=== PATIENT | female | born 1945 | race Caucasian/White ===

== ENCOUNTER 2017-01-19 13:09 | Emergency (ER) | payer SELFPAY ==
[~2017-01-19] VITALS: Ht 165.1 cm; Wt 116.0 kg
[~2017-01-19 13:09] MED LIST: ADVAIR HFA120 INHALA IH; AZITHROMYCIN250 MG PO; BENZONATATE100 MG PO; CEFTIN500 MG PO; CLARITIN,ALAVAR10 MG PO; MOTRIN800 MG PO; NAPROXEN500 MG PO; NEURONTIN300 MG PO; PREDNISONE5 MG PO; PREDNISONE50 MG PO; ROBITUSSIN AC,T10 ML PO; SPIRIVA RESPIMAT4 GM IH; VENTOLIN HFA18 GM IH; ZESTRIL20 MG PO; ZOLOFT100 MG PO
[2017-01-19] MEDS ORDERED: PERCOCET 5/31 TABLET PO (14:30)
[2017-01-19 15:09] VITALS: BP 154/72
== END 2017-01-19 15:16 | disposition home or self-care (01) ==
LOC: EME 13:09
DX: S22.41XA Multiple fractures of ribs, right side, initial encounter for closed fracture (principal); S82.142A Displaced bicondylar fracture of left tibia, initial encounter for closed fracture; W01.198A Fall on same level from slipping, tripping and stumbling with subsequent striking against other object, initial encounter; Y93.01 Activity, walking, marching and hiking; I10 Essential (primary) hypertension; J44.9 Chronic obstructive pulmonary disease, unspecified; J45.909 Unspecified asthma, uncomplicated
CPT/HCPCS: 71101; 73564; 99281; 99284

== ENCOUNTER 2017-11-03 13:24 | Emergency (ER) | payer OTHER ==
[~2017-11-03] VITALS: Ht 165.1 cm; Wt 116.8 kg
[~2017-11-03 13:24] MED LIST changes: +PERCOCET 5/31 TABLET PO
[2017-11-03 15:27] VITALS: BP 153/68
== END 2017-11-03 15:51 | disposition home or self-care (01) ==
LOC: EME 13:24
DX: S92.344A Nondisplaced fracture of fourth metatarsal bone, right foot, initial encounter for closed fracture (principal); S92.354A Nondisplaced fracture of fifth metatarsal bone, right foot, initial encounter for closed fracture; S92.514A Nondisplaced fracture of proximal phalanx of right lesser toe(s), initial encounter for closed fracture; V89.0XXA Person injured in unspecified motor-vehicle accident, nontraffic, initial encounter; Y92.415 Exit ramp or entrance ramp of street or highway as the place of occurrence of the external cause; Z91.041 Radiographic dye allergy status
CPT/HCPCS: 71020; 73630; 99281; 99284

== ENCOUNTER 2018-02-05 03:42 | Observation (INO) | payer OTHER ==
[~2018-02-05] VITALS: Ht 165.1 cm; Wt 116.8 kg
[2018-02-05 05:07] LABS: HEMOGLOBIN 12.4 G/DL (11.9-15.5); MCH 29.2 PG (29.0-34.0); MCHC 32.6 G/DL (30.0-36.0); MCV 89.6 FL (83-99); PLATELET COUNT 105 K/uL (156-360); RBC DIS.WIDTH-CV 13.2 % (11.8-14.6); RBC DIS.WIDTH-SD 43.2 % (39-53); RED BLOOD COUNT 4.24 M/uL (3.80-5.20); WHITE BLOOD COUNT 4.2 K/uL (4.1-10.2)
[2018-02-05 05:33] LABS: TROP-I INTERPRETATION NEGATIVE; TROPONIN-I < 0.01 ng/mL (0.0-0.30)
[2018-02-05 05:55] LABS: CHLORIDE 107 mEq/L (99-109); POTASSIUM 4.4 mEq/L (3.7-5.4); SODIUM 143 mEq/L (136-147)
[2018-02-05 05:56] LABS: GLUCOSE 102 mg/dL (70-99)
[2018-02-05 06:00] LABS: CREATININE 0.8 mg/dL (0.6-1.3); GFR ESTIMATE (CALCULATED) > 59 mL/min/
[2018-02-05 06:01] LABS: UREA NITROGEN (BUN) 14 mg/dL (9-23)
[2018-02-05 08:25] VITALS: BP 143/95
[2018-02-05 11:11] VITALS: BP 134/62
[2018-02-05 11:16] LABS: TROP-I INTERPRETATION NEGATIVE; TROPONIN-I < 0.01 ng/mL (0.0-0.30)
[2018-02-05] MEDS ORDERED: SPIRIVA RESPIMAT4 GM IH ×2 (12:09→12:10)
[2018-02-05] MEDS ORDERED: MOBIC7.5 MG PO (12:13)
[2018-02-05] MEDS ORDERED: OMEPRAZOLE20 M2 PO (12:14)
[2018-02-05] MEDS ORDERED: CLONIDINE HCL0.2 MG PO (12:15)
[2018-02-05] MEDS ORDERED: METOPROLOL SUC200 MG PO (12:15)
[2018-02-05] MEDS ORDERED: CALCIUM 500 +1 EAC2 PO (12:17)
[2018-02-05 15:36] VITALS: BP 126/66
[2018-02-05 17:16] LABS: TROP-I INTERPRETATION NEGATIVE; TROPONIN-I < 0.01 ng/mL (0.0-0.30)
[2018-02-05 19:29] VITALS: BP 167/74
[2018-02-06 00:28] VITALS: BP 182/80
[2018-02-06 03:48] VITALS: BP 146/66
[2018-02-06 05:11] LABS: BASOPHIL (%) 1.1 % (0-1); BASOPHIL COUNT 0.1 K/uL (0-0.1); EOSINOPHIL (%) 2.6 % (0-5); EOSINOPHIL COUNT 0.1 K/uL (0-0.3); HEMATOCRIT 38.6 % (36.0-46.0); HEMOGLOBIN 12.7 G/DL (11.9-15.5); IMMATURE GRANULOCYTE (%) 0.2 % (0.0-0.7); LYMPHOCYTE (%) 23.4 % (15-42); LYMPHOCYTE COUNT 1.1 K/uL (1.0-2.8); MCH 29.5 PG (29.0-34.0); MCHC 32.9 G/DL (30.0-36.0); MCV 89.6 FL (83-99); MONOCYTE (%) 9.4 % (3-12); MONOCYTE COUNT 0.4 K/uL (0-0.8); NEUTROPHIL (%) 63.3 % (45-76); PLATELET COUNT 107 K/uL (156-360); RBC DIS.WIDTH-CV 13.2 % (11.8-14.6); RBC DIS.WIDTH-SD 43.5 % (39-53); RED BLOOD COUNT 4.31 M/uL (3.80-5.20); WHITE BLOOD COUNT 4.7 K/uL (4.1-10.2)
[2018-02-06 06:05] LABS: CHLORIDE 102 MEQ/L (99-109); CREATININE 1.1 MG/DL (0.6-1.3); GFR ESTIMATE (CALCULATED) 52 mL/min/; GLUCOSE 101 mg/dL (70-99); POTASSIUM 3.9 MEQ/L (3.7-5.4); SODIUM 144 MEQ/L (136-147); UREA NITROGEN (BUN) 15 mg/dL (9-23)
[2018-02-06 08:35] VITALS: BP 147/70
[2018-02-06 11:33] VITALS: BP 119/59
[2018-02-06 15:08] VITALS: BP 99/49
[2018-02-06] MEDS ORDERED: ASPIR-LOW81 MG PO (15:45)
[2018-02-06] MEDS ORDERED: AMLODIPINE BESYL5 MG PO (15:45)
[2018-02-06] MEDS ORDERED: HYDROCHLOROTH12.5 M3 PO (15:45)
[2018-02-06] MEDS ORDERED: LISINOPRIL40 MG PO (15:45)
== END 2018-02-06 16:30 | disposition home or self-care (01) ==
LOC: EME 03:42 → EDOF 06:09 → 5WEST 06:09 → EDOF 06:09 → ENRESERV 06:11 → 5WEST 08:08
PROVIDERS: Emergency Medicine; Family Medicine; Internal Medicine
DX: R07.9 Chest pain, unspecified (principal); I16.0 Hypertensive urgency; R00.1 Bradycardia, unspecified; I11.0 Hypertensive heart disease with heart failure; I50.9 Heart failure, unspecified; I25.10 Atherosclerotic heart disease of native coronary artery without angina pectoris; J44.9 Chronic obstructive pulmonary disease, unspecified; D69.6 Thrombocytopenia, unspecified; K29.60 Other gastritis without bleeding; F41.9 Anxiety disorder, unspecified; F32.9 Major depressive disorder, single episode, unspecified; E78.5 Hyperlipidemia, unspecified; E66.01 Morbid (severe) obesity due to excess calories; Z68.41 Body mass index [BMI] 40.0-44.9, adult; Z90.710 Acquired absence of both cervix and uterus; Z87.891 Personal history of nicotine dependence
CPT/HCPCS: 71045; 71046; 80048; 83880; 84484; 85025; 85027; 93005; 93306; 94640; 94640 76; 94799; 99281; 99284; G0378; J1650; J1940

== ENCOUNTER 2018-04-11 13:35 | Inpatient (IN) | payer OTHER ==
[~2018-04-11] VITALS: Ht 165.1 cm; Wt 112.7 kg
[~2018-04-11 13:35] MED LIST changes: +AMLODIPINE BESYL5 MG PO; +ASPIR-LOW81 MG PO; +CALCIUM 500 +1 EAC2 PO; +CLONIDINE HCL0.2 MG PO; +HYDROCHLOROTH12.5 M3 PO; +LISINOPRIL40 MG PO; +METOPROLOL SUC200 MG PO; +MOBIC7.5 MG PO; +OMEPRAZOLE20 M2 PO
[2018-04-11 14:27] LABS: HEMATOCRIT 40.3 % (36.0-46.0); HEMOGLOBIN 13.2 G/DL (11.9-15.5); MCH 30.1 PG (29.0-34.0); MCHC 32.8 G/DL (30.0-36.0); MCV 91.8 FL (83-99); PLATELET COUNT 131 K/uL (156-360); RBC DIS.WIDTH-CV 13.4 % (11.8-14.6); RBC DIS.WIDTH-SD 45.4 % (39-53); RED BLOOD COUNT 4.39 M/uL (3.80-5.20); WHITE BLOOD COUNT 11.5 K/uL (4.1-10.2)
[2018-04-11 14:39] LABS: CHLORIDE 104 mEq/L (99-109); POTASSIUM 3.9 mEq/L (3.7-5.4); SODIUM 144 mEq/L (136-147)
[2018-04-11 14:40] LABS: GLUCOSE 121 mg/dL (70-99)
[2018-04-11 14:43] LABS: INTER. NORMALIZED RATIO 1.4
[2018-04-11 14:44] LABS: CREATININE 1.2 mg/dL (0.6-1.3); GFR ESTIMATE (CALCULATED) 47 mL/min/
[2018-04-11 14:45] LABS: UREA NITROGEN (BUN) 18 mg/dL (9-23)
[2018-04-11 14:46] LABS: PTT 30.9 SEC (25-37)
[2018-04-11] MEDS ORDERED: FUROSEMIDE20 MG PO (17:04)
[2018-04-11] MEDS ORDERED: METOPROLOL SUC200 MG PO (17:05)
[2018-04-11] MEDS ORDERED: NIFEDIPINE ER30 MG PO (17:05)
[2018-04-11] MEDS ORDERED: CYCLOBENZAPRINE5 MG PO (17:05)
[2018-04-11 18:12] VITALS: BP 131/66
[2018-04-11 18:28] LABS: HEMATOCRIT 39.3 % (36.0-46.0); HEMOGLOBIN 12.4 G/DL (11.9-15.5); MCV 91.8 FL (83-99)
[2018-04-11 19:41] VITALS: BP 128/58
[2018-04-11 21:44] LABS: HEMATOCRIT 38.2 % (36.0-46.0); HEMOGLOBIN 12.1 G/DL (11.9-15.5); MCV 92.5 FL (83-99)
[2018-04-12] VITALS: BP 124/60
[2018-04-12 04:00] VITALS: BP 137/61
[2018-04-12 05:52] LABS: HEMATOCRIT 35.5 % (36.0-46.0); HEMOGLOBIN 11.3 G/DL (11.9-15.5); MCH 29.4 PG (29.0-34.0); MCHC 31.8 G/DL (30.0-36.0); MCV 92.2 FL (83-99); PLATELET COUNT 99 K/uL (156-360); RBC DIS.WIDTH-CV 13.7 % (11.8-14.6); RBC DIS.WIDTH-SD 45.9 % (39-53); RED BLOOD COUNT 3.85 M/uL (3.80-5.20); WHITE BLOOD COUNT 6.3 K/uL (4.1-10.2)
[2018-04-12 06:25] LABS: CHLORIDE 109 MEQ/L (99-109); CREATININE 0.9 MG/DL (0.6-1.3); GFR ESTIMATE (CALCULATED) > 59 mL/min/; GLUCOSE 118 mg/dL (70-99); POTASSIUM 3.8 MEQ/L (3.7-5.4); SODIUM 146 MEQ/L (136-147); UREA NITROGEN (BUN) 14 mg/dL (9-23)
[2018-04-12 07:44] VITALS: BP 144/68
[2018-04-12 11:39] VITALS: BP 117/62
[2018-04-12 16:09] VITALS: BP 118/55
[2018-04-12 17:46] LABS: HEMATOCRIT 36.4 % (36.0-46.0); HEMOGLOBIN 11.7 G/DL (11.9-15.5); MCV 91.5 FL (83-99)
[2018-04-12 19:00] VITALS: BP 131/60
[2018-04-13 00:44] VITALS: BP 181/79
[2018-04-13 01:30] VITALS: BP 169/69
[2018-04-13 01:40] LABS: C DIFF TOXIN NEGATIVE (NEGATIVE)
[2018-04-13 04:00] VITALS: BP 140/72
[2018-04-13 06:08] LABS: HEMATOCRIT 35.6 % (36.0-46.0); HEMOGLOBIN 11.4 G/DL (11.9-15.5); MCH 29.1 PG (29.0-34.0); MCV 90.8 FL (83-99); PLATELET COUNT 125 K/uL (156-360); RBC DIS.WIDTH-CV 13.6 % (11.8-14.6); RBC DIS.WIDTH-SD 45.5 % (39-53); RED BLOOD COUNT 3.92 M/uL (3.80-5.20); WHITE BLOOD COUNT 4.3 K/uL (4.1-10.2)
[2018-04-13 06:23] LABS: CHLORIDE 110 MEQ/L (99-109); GFR ESTIMATE (CALCULATED) 58 mL/min/; GLUCOSE 122 mg/dL (70-99); POTASSIUM 3.5 MEQ/L (3.7-5.4); SODIUM 147 MEQ/L (136-147); UREA NITROGEN (BUN) 11 mg/dL (9-23)
[2018-04-13 07:29] VITALS: BP 153/68
[2018-04-13] MEDS ORDERED: FLAGYL500 MG PO (09:19)
[2018-04-13] MEDS ORDERED: CIPRO500 MG PO (09:19)
== END 2018-04-13 11:36 | disposition home or self-care (01) | DRG 392 ==
LOC: EME 13:35 → EDOF 15:51 → ENRESERV 15:52 → 5SOUTH 17:58
PROVIDERS: Emergency Medicine; Family Medicine; Physician Assistant Medical
DX: A09 Infectious gastroenteritis and colitis, unspecified (principal); K92.2 Gastrointestinal hemorrhage, unspecified; I95.9 Hypotension, unspecified; J44.9 Chronic obstructive pulmonary disease, unspecified; I10 Essential (primary) hypertension; F32.9 Major depressive disorder, single episode, unspecified; F41.9 Anxiety disorder, unspecified; K21.9 Gastro-esophageal reflux disease without esophagitis; E66.9 Obesity, unspecified; Z68.41 Body mass index [BMI] 40.0-44.9, adult; Z79.82 Long term (current) use of aspirin; Z87.891 Personal history of nicotine dependence
CPT/HCPCS: 71045; 74176; 80048; 83605; 83630; 85014; 85018; 85027; 85610; 85730; 86850; 86900; 86901; 87040; 87493; 87506; 94640; 94640 76; 94799; 99202; 99281; 99285; C9113; J0744; J3370; J7030; S0030

== ENCOUNTER 2018-06-21 09:06 | Emergency (ER) | payer OTHER ==
[~2018-06-21] VITALS: Ht 165.1 cm; Wt 109.9 kg
[~2018-06-21 09:06] MED LIST changes: +CIPRO500 MG PO; +CYCLOBENZAPRINE5 MG PO; +FLAGYL500 MG PO; +FUROSEMIDE20 MG PO; +NIFEDIPINE ER30 MG PO
[2018-06-21 09:39] LABS: HEMATOCRIT 43.9 % (36.0-46.0); HEMOGLOBIN 14.7 G/DL (11.9-15.5); MCH 30.1 PG (29.0-34.0); MCHC 33.5 G/DL (30.0-36.0); PLATELET COUNT 143 K/uL (156-360); RBC DIS.WIDTH-CV 12.9 % (11.8-14.6); RBC DIS.WIDTH-SD 42.5 % (39-53); RED BLOOD COUNT 4.88 M/uL (3.80-5.20); WHITE BLOOD COUNT 9.6 K/uL (4.1-10.2)
[2018-06-21 09:48] LABS: CHLORIDE 107 mEq/L (99-109); POTASSIUM 3.4 mEq/L (3.7-5.4); SODIUM 144 mEq/L (136-147)
[2018-06-21 09:50] LABS: GLUCOSE 182 mg/dL (70-99)
[2018-06-21 09:53] LABS: GFR ESTIMATE (CALCULATED) 58 mL/min/
[2018-06-21 09:54] LABS: UREA NITROGEN (BUN) 21 mg/dL (9-23)
[2018-06-21 10:11] LABS: APPEARANCE CLEAR ((CLEAR)); BILIRUBIN NEGATIVE; BLOOD LARGE; COLOR YELLOW ((YELLOW)); GLUCOSE (STRIP) NEGATIVE; KETONES NEGATIVE; LEUKOCYTES SMALL; NITRITE NEGATIVE; PROTEIN (STRIP) NEGATIVE; SPECIFIC GRAVITY 1.016 (1.000-1.030); UROBILINOGEN 0.2 MG/DL (0.2-1.0)
[2018-06-21 10:16] LABS: BACTERIA NONE SEEN /HPF; EPITHELIAL CELLS RARE /HPF; MUCUS 1+ /LPF; RED BLOOD CELLS TNTC /HPF (0-5); UCUL ADDED? YES; WHITE BLOOD CELLS 15-20 /HPF (0-5)
[2018-06-21] MEDS ORDERED: FLOMAX0.4 MG PO (11:11)
[2018-06-21] MEDS ORDERED: PERCOCET 5/31 TABLET PO (11:11)
[2018-06-21] MEDS ORDERED: ZOFRAN ODT4 MG PO (11:11)
[2018-06-21 11:27] VITALS: BP 128/91
== END 2018-06-21 11:32 | disposition home or self-care (01) ==
LOC: EME 09:06
DX: N13.2 Hydronephrosis with renal and ureteral calculous obstruction (principal); R34 Anuria and oliguria; R11.2 Nausea with vomiting, unspecified; R30.0 Dysuria; K43.2 Incisional hernia without obstruction or gangrene; I70.0 Atherosclerosis of aorta; J44.9 Chronic obstructive pulmonary disease, unspecified; I10 Essential (primary) hypertension; Z90.49 Acquired absence of other specified parts of digestive tract; Z87.891 Personal history of nicotine dependence
CPT/HCPCS: 74176; 80048; 81003; 85027; 87077; 87086; 87186; 99281; 99284; J1885; J2405; J7030